=== PATIENT | female | born 1995 | race Hispanic/Latino ===

== ENCOUNTER 2021-10-18 00:26 | Emergency (ER) | payer BC, OTHER ==
[2021-10-18] MEDS ORDERED: predniSONE 20 MG TAB ONE (04:34)
[2021-10-18] MEDS ORDERED: diphenhydrAMINE 50 MG CAP ONE (04:37)
== END 2021-10-18 04:39 | disposition home or self-care (01) ==
LOC: ERS 00:26
DX: T14.8XXA Other injury of unspecified body region, initial encounter (principal); W57.XXXA Bitten or stung by nonvenomous insect and other nonvenomous arthropods, initial encounter
CPT/HCPCS: 99282; J7512